=== PATIENT | male | born 1995 | race Caucasian/White ===

== ENCOUNTER → 2017-05-24 | Outpatient (CLI) | payer OTHER ==
[~2017-05-24] MED LIST: GASTROGRAFIN SOLUTION 30ML (Q9963) As Ordered; ISOVUE-370 76% 100ML VIAL (Q9967) As Ordered
== END ==
LOC: M RAD 13:02
DX: R10.32 Left lower quadrant pain (principal)
CPT/HCPCS: Q9963

== ENCOUNTER 2018-09-03 02:12 | Emergency (ER) | payer BC, OTHER, SELFPAY ==
[~2018-09-03] VITALS: Ht 185.4 cm; Wt 100.0 kg
[2018-09-03] MEDS ORDERED: BENA25CA4 PO (02:19)
[2018-09-03] MEDS ORDERED: IBUP80TA PO (02:19)
[2018-09-03] MEDS ORDERED: AMOX500T PO (03:32)
[2018-09-03] MEDS ORDERED: AMOXICILLIN 500 MG CAP PO ONE (03:45)
[2018-09-03 03:56] VITALS: BP 108/64
== END 2018-09-03 04:02 | disposition home or self-care (01) ==
LOC: M ED 02:12
DX: H74.8X1 Other specified disorders of right middle ear and mastoid (principal)